=== PATIENT | male | born 1975 | race Hispanic/Latino ===

== ENCOUNTER 2016-12-25 23:53 | Observation (INO) | payer MEDICAID, OTHER ==
[2016-12-25 23:54] VITALS: BMI 24.3
[2016-12-26 00:22] VITALS: TEMP 97.9
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
[2016-12-26 02:01] LABS: HEMATOCRIT 35.7 % (42.0-52.0); MEAN CELL VOLUME 84.8 fL (80.0-105.0); MEAN CORPUSCULAR HEMOGLOBIN 26.6 pg (25.0-35.0); MEAN CORPUSCULAR HGB CONC 31.4 g/dl (31.0-37.0); MEAN PLATELET VOLUME 10.3 fl (7.0-11.0); RED CELL DISTRIBUTION WIDTH 13.6 % (11.5-14.5); WHITE BLOOD COUNT 7.7 10^3/ul (4.5-11.0)
[2016-12-26 02:12] LABS: INR 1.06 (0.93-1.08); PARTIAL THROMBOPLASTIN TIME 26.4 Seconds (23.7-30.8)
[2016-12-26 02:13] LABS: ALB/GLOB RATIO 1.2 (1.1-1.8); ALKALINE PHOSPHATASE 80 U/L (38-133); ALT/SGPT 36 U/L (7-56); AST/SGOT 31 U/L (15-59); BILIRUBIN,TOTAL 0.6 mg/dL (0.2-1.3); BLOOD UREA NITROGEN 14 mg/dL (7-21); CALCIUM 8.7 mg/dL (8.4-10.5); CARBON DIOXIDE 32 mmol/L (21-33); CHLORIDE 100 mmol/L (98-107); GFR AFRICAN-AMERICAN > 60; GLUCOSE,RANDOM 74 mg/dL (70-110); POTASSIUM 3.8 mmol/L (3.6-5.0); SODIUM 139 mmol/L (132-148); TOTAL PROTEIN 6.8 g/dL (5.8-8.3)
[2016-12-26 02:26] LABS: TROPONIN I < 0.01 ng/mL
[2016-12-26] MEDS ORDERED: Albuterol 0.083% Inhal Sol (2.5 mg/3 mL) UD IH PRN (05:26)
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
[2016-12-26 06:46] LABS: URINE BILIRUBIN NEGATIVE (NEGATIVE); URINE BLOOD NEGATIVE (NEGATIVE); URINE GLUCOSE (UA) NEGATIVE (NEGATIVE); URINE KETONE 15 mg/dL (NEGATIVE); URINE LEUKOCYTE ESTERASE NEGATIVE Leu/uL (NEGATIVE); URINE PROTEIN TRACE mg/dL (<30 mg/dL)
[2016-12-26 06:47] LABS: CHOLESTEROL 127 mg/dL (130-200)
[2016-12-26 06:49] LABS: URINE APPEARANCE SL CLOUDY (CLEAR); URINE COLOR YELLOW (YELLOW)
[2016-12-26 06:58] LABS: URINE EPITHELIAL CELLS 0 - 2 /hpf (0-5); URINE RBC 0 - 2 /hpf (0-2); URINE WBC 0 - 2 /hpf (0-6)
[2016-12-26 06:59] VITALS: O2SAT 100
[2016-12-26 06:59] LABS: URINE AMORPHOUS SEDIMENT RARE; URINE CALCIUM OXALATE CRYSTALS RARE /hpf
[2016-12-26 07:07] LABS: FREE T4 1.17 ng/dL (0.78-2.19); TROPONIN I < 0.01 ng/mL
[2016-12-26 07:21] LABS: THYROID STIMULATING HORMONE 0.72 mIU/mL (0.46-4.68)
--- NOTE | 2016-12-26 08:43 | RAD ---
HISTORY: Fever COMPARISON: 03/20/2015 FINDINGS: LUNGS: The lungs are well inflated and clear. PLEURA: No significant pleural effusion identified, no pneumothorax apparent. CARDIOVASCULAR: Normal. OSSEOUS STRUCTURES: No significant abnormalities. VISUALIZED UPPER ABDOMEN: Normal. OTHER FINDINGS: None. IMPRESSION: No active pulmonary disease.
[2016-12-26 09:02] VITALS: RESP 18
[2016-12-26 09:42] VITALS: BP 135/73
[2016-12-26] MEDS ORDERED: Thiamine 100 mg/ml Inj IV SCH (10:00)
[2016-12-26] MEDS ORDERED: Multivitamin With Minerals Tab PO SCH (10:00)
--- NOTE | 2016-12-26 13:10 | CARD ---
APPROVED REPORT EXAM: Two-dimensional and M-mode echocardiogram with Doppler and color Doppler. INDICATION Chest Pain 2D DIMENSIONS Left Atrium (2D)3.4 (1.6-4.0cm)IVSd1.0 (0.7-1.1cm) LVDd4.1 (3.9-5.9cm)PWd1.1 (0.7-1.1cm) LVDs2.7 (2.5-4.0cm)FS (%) 34.9 % LVEF (%)64.5 (>50%) M-Mode DIMENSIONS Aortic Root2.90 (2.2-3.7cm)Aortic Cusp Exc.1.80 (1.5-2.0cm) Aortic Valve AoV Peak Xbsjwtph023.0cm/Tati Peak GR.7mmHg Mitral Valve MV E Eiqesned22.9cm/sMV A Mfdsbxwg16.7cm/sE/A ratio1.2 TDI E/Lateral E'0.0E/Medial E'0.0 Tricuspid Valve TR Peak [id number]/sRAP [id number] Peak Gr.26mmHg [id number] LEFT VENTRICLE The left ventricle is normal size. There is normal left ventricular wall thickness. The left ventricular function is normal. The left ventricular ejection fraction is within the normal range. There is normal LV segmental wall motion. The left ventricular diastolic function is normal. RIGHT VENTRICLE The right ventricle is normal size. There is normal right ventricular wall thickness. The right ventricular systolic function is normal. ATRIA The left atrium size is normal. The right atrium size is normal. AORTIC VALVE The aortic valve is normal in structure. There is no aortic valvular stenosis. MITRAL VALVE The mitral valve is mildly thickened. There is no mitral valve regurgitation noted. TRICUSPID VALVE There is mild pulmonary hypertension. GREAT VESSELS The aortic root is normal in size. PERICARDIAL EFFUSION There is no pericardial effusion. <Conclusion> The left ventricle is normal size. There is normal left ventricular wall thickness. The left ventricular function is normal. The left ventricular ejection fraction is within the normal range. There is normal LV segmental wall motion. There is mild pulmonary hypertension.
[2016-12-26 15:22] VITALS: PULSE 88
--- NOTE | 2016-12-26 16:40 | CP.PCM.DIS ---
<Nick Cornell - Last Filed: 12/26/16 16:35> Provider - Provider Date of Admission: 12/26/16 04:48 Attending physician: Demetrio Del Castillo MD Consults: Cardio: Pool Time Spent in preparation of Discharge (in minutes): 35 Diagnosis - Discharge Diagnosis (1) Substance abuse Status: Chronic Priority: High (2) Chest pain Status: Chronic Priority: High Hospital Course - Lab Results Lab Results: Most Recent Lab Values WBC 7.7 10^3/ul (4.5-11.0) 12/26/16 00:40 RBC 4.21 10^6/uL (3.5-6.1) 12/26/16 00:40 Hgb 11.2 gm/dL (14.0-18.0) L 12/26/16 00:40 Hct 35.7 % (42.0-52.0) L 12/26/16 00:40 MCV 84.8 fL (80.0-105.0) 12/26/16 00:40 MCH 26.6 pg (25.0-35.0) 12/26/16 00:40 MCHC 31.4 g/dl (31.0-37.0) 12/26/16 00:40 RDW 13.6 % (11.5-14.5) 12/26/16 00:40 Plt Count 322 10^3/uL (120.0-450.0) 12/26/16 00:40 MPV 10.3 fl (7.0-11.0) 12/26/16 00:40 PT 11.4 Seconds (9.9-11.8) 12/26/16 00:40 INR 1.06 (0.93-1.08) 12/26/16 00:40 APTT 26.4 Seconds (23.7-30.8) 12/26/16 00:40 Sodium 139 mmol/L (132-148) 12/26/16 00:40 Potassium 3.8 mmol/L (3.6-5.0) 12/26/16 00:40 Chloride 100 mmol/L (98-107) 12/26/16 00:40 Carbon Dioxide 32 mmol/L (21-33) 12/26/16 00:40 Anion Gap 11 (10-20) 12/26/16 00:40 BUN 14 mg/dL (7-21) 12/26/16 00:40 Creatinine 0.8 mg/dL (0.5-1.4) 12/26/16 00:40 Est GFR ( Amer) > 60 12/26/16 00:40 Est GFR (Non-Af Amer) > 60 12/26/16 00:40 Random Glucose 74 mg/dL (70-110) 12/26/16 00:40 Hemoglobin A1c 5.7 % (4.2-6.5) 12/26/16 06:15 Calcium 8.7 mg/dL (8.4-10.5) 12/26/16 00:40 Total Bilirubin 0.6 mg/dL (0.2-1.3) 12/26/16 00:40 AST 31 U/L (15-59) 12/26/16 00:40 ALT 36 U/L (7-56) 12/26/16 00:40 Alkaline Phosphatase 80 U/L (38-133) 12/26/16 00:40 Lactate Dehydrogenase 424 U/L (333-699) 12/26/16 06:15 Total Creatine Kinase 61 U/L (35-230) 12/26/16 06:15 Troponin I < 0.01 ng/mL 12/26/16 06:15 Total Protein 6.8 g/dL (5.8-8.3) 12/26/16 00:40 Albumin 3.7 g/dL (3.0-4.8) 12/26/16 00:40 Globulin 3.2 gm/dL 12/26/16 00:40 Albumin/Globulin Ratio 1.2 (1.1-1.8) 12/26/16 00:40 Triglycerides 52 mg/dL (35-160) 12/26/16 06:15 Cholesterol 127 mg/dL (130-200) L 12/26/16 06:15 LDL Cholesterol Direct 69 mg/dL (0-129) 12/26/16 06:15 HDL Cholesterol 50 mg/dL (29-60) 12/26/16 06:15 Free T4 1.17 ng/dL (0.78-2.19) 12/26/16 06:15 TSH 3rd Generation 0.72 mIU/mL (0.46-4.68) 12/26/16 06:15 Urine Color Yellow (YELLOW) 12/26/16 03:40 Urine Appearance Sl cloudy (CLEAR) 12/26/16 03:40 Urine pH 6.0 (4.7-8.0) 12/26/16 03:40 Ur Specific [place] 1.025 (1.005-1.035) 12/26/16 03:40 Urine Protein Trace mg/dL (<30 mg/dL) H 12/26/16 03:40 Urine Glucose (UA) Negative mg/dL (NEGATIVE) 12/26/16 03:40 Urine Ketones 15 mg/dL (NEGATIVE) H 12/26/16 03:40 Urine Blood Negative (NEGATIVE) 12/26/16 03:40 Urine Nitrate Negative (NEGATIVE) 12/26/16 03:40 Urine Bilirubin Negative (NEGATIVE) 12/26/16 03:40 Urine Urobilinogen 2.0 E.U./dL (<1 E.U./dL) H 12/26/16 03:40 Ur Leukocyte Esterase Negative Mel[place]/uL (NEGATIVE) 12/26/16 03:40 Urine RBC 0 - 2 /hpf (0-2) 12/26/16 03:40 Urine WBC 0 - 2 /hpf (0-6) 12/26/16 03:40 Ur Epithelial Cells 0 - 2 /hpf (0-5) 12/26/16 03:40 Calcium Oxalate Crystal Rare /hpf 12/26/16 03:40 Amorphous Sediment Rare 12/26/16 03:40 Urine Opiates Screen Positive (NEGATIVE) H 12/26/16 03:40 Urine Methadone Screen Negative (NEGATIVE) 12/26/16 03:40 Ur Barbiturates Screen Negative (NEGATIVE) 12/26/16 03:40 Ur Phencyclidine Scrn Negative (NEGATIVE) 12/26/16 03:40 Ur Amphetamines Screen Negative (NEGATIVE) 12/26/16 03:40 U Benzodiazepines Scrn Positive (NEGATIVE) H 12/26/16 03:40 U Oth Cocaine Metabols Positive (NEGATIVE) H 12/26/16 03:40 U Cannabinoids Screen Positive (NEGATIVE) H 12/26/16 03:40 Alcohol, Quantitative < 10 mg/dL (0-10) 12/26/16 00:40 Hepatitis A IgM Ab Negative (NEGATIVE) 12/26/16 06:15 Hep Bs Antigen Negative (NEGATIVE) 12/26/16 06:15 Hep B Core IgM Ab Negative (NEGATIVE) 12/26/16 06:15 Hepatitis C Antibody Negative (NEGATIVE) 12/26/16 06:15 - Hospital Course Hospital Course: This patient is a 41 yo M with PMH of hypertension, diabetes, gastric bypass, depression, and heroin abuse who is presented to the ED with a 1 day history of chest pain he first reported after being arrested for drug possession by local police. He denied doing drugs, but his drug screen was positive for opiates, cocaine, THC, and benzos. During this admission, he was seen by Cardiology. His trops were negative x2 and his Echo was notable only for mild pulmonary hypertension, so he was cleared for discharge by Cardiology. He was instructed to follow up with a physician within 1 week of discharge, and to avoid further use of illicit substances, which he again denied taking. Questions were answered to his satisfaction, and then he was discharged. Discharge Exam - Head Exam Head Exam: ATRAUMATIC, NORMAL INSPECTION, NORMOCEPHALIC - Eye Exam Eye Exam: EOMI, Normal appearance. absent: Conjunctival injection, Scleral icterus Pupil Exam: absent: Irregular, Unequal - ENT Exam ENT Exam: Mucous Membranes Moist - Neck Exam Neck exam: Full Rom - Respiratory Exam Respiratory Exam: Chest Wall Tenderness (left upper chest into shoulder region tenderness statically, worse with palpation, no radiation), Clear to PA & Lateral, NORMAL BREATHING PATTERN, UNREMARKABLE. absent: Accessory Muscle Use, Decreased Breath Sounds, Rales, Rhonchi, Wheezes, Respiratory Distress - Cardiovascular Exam Cardiovascular Exam: REGULAR RHYTHM, RRR, +S1, +S2. absent: Bradycardia, Tachycardia, Irregular Rhythm, +S4 - GI/Abdominal Exam GI & Abdominal Exam: Normal Bowel Sounds, Soft, Unremarkable. absent: Diminished Bowel Sounds, Hyperactive Bowel Sounds, Hypoactive Bowel Sounds, Tenderness - Extremities Exam Extremities exam: normal capillary refill, normal inspection, pedal pulses present Additional comments: LUE ROM restricted due to handcuffed to bed, but otherwise appropriate ROM, moving fingers without difficulty - Neurological Exam Additional comments: Somnolent this AM but arousable, Awake and alert after; oriented to self, location, and time - Psychiatric Exam Psychiatric exam: Flat Affect, Normal Mood - Skin Skin Exam: Dry, Intact, Normal Color, Warm Discharge Plan - Follow Up Plan Condition: STABLE Disposition: HOME/ ROUTINE Instructions: Chest Pain (DC) Additional Instructions: Please follow up with a doctor within 1 week of discharge Refrain from further illicit drug use Avoid all tobacco and alcohol use <Demetrio Del Castillo - Last Filed: 12/27/16 13:44> Provider - Provider Date of Admission: 12/26/16 04:48 Attending physician: Demetrio Del Castillo MD Hospital Course - Lab Results Lab Results: Most Recent Lab Values WBC 7.7 10^3/ul (4.5-11.0) 12/26/16 00:40 RBC 4.21 10^6/uL (3.5-6.1) 12/26/16 00:40 Hgb 11.2 gm/dL (14.0-18.0) L 12/26/16 00:40 Hct 35.7 % (42.0-52.0) L 12/26/16 00:40 MCV 84.8 fL (80.0-105.0) 12/26/16 00:40 MCH 26.6 pg (25.0-35.0) 12/26/16 00:40 MCHC 31.4 g/dl (31.0-37.0) 12/26/16 00:40 RDW 13.6 % (11.5-14.5) 12/26/16 00:40 Plt Count 322 10^3/uL (120.0-450.0) 12/26/16 00:40 MPV 10.3 fl (7.0-11.0) 12/26/16 00:40 PT 11.4 Seconds (9.9-11.8) 12/26/16 00:40 INR 1.06 (0.93-1.08) 12/26/16 00:40 APTT 26.4 Seconds (23.7-30.8) 12/26/16 00:40 Sodium 139 mmol/L (132-148) 12/26/16 00:40 Potassium 3.8 mmol/L (3.6-5.0) 12/26/16 00:40 Chloride 100 mmol/L (98-107) 12/26/16 00:40 Carbon Dioxide 32 mmol/L (21-33) 12/26/16 00:40 Anion Gap 11 (10-20) 12/26/16 00:40 BUN 14 mg/dL (7-21) 12/26/16 00:40 Creatinine 0.8 mg/dL (0.5-1.4) 12/26/16 00:40 Est GFR ( Amer) > 60 12/26/16 00:40 Est GFR (Non-Af Amer) > 60 12/26/16 00:40 Random Glucose 74 mg/dL (70-110) 12/26/16 00:40 Hemoglobin A1c 5.7 % (4.2-6.5) 12/26/16 06:15 Calcium 8.7 mg/dL (8.4-10.5) 12/26/16 00:40 Total Bilirubin 0.6 mg/dL (0.2-1.3) 12/26/16 00:40 AST 31 U/L (15-59) 12/26/16 00:40 ALT 36 U/L (7-56) 12/26/16 00:40 Alkaline Phosphatase 80 U/L (38-133) 12/26/16 00:40 Lactate Dehydrogenase 424 U/L (333-699) 12/26/16 06:15 Total Creatine Kinase 61 U/L (35-230) 12/26/16 06:15 Troponin I < 0.01 ng/mL 12/26/16 06:15 Total Protein 6.8 g/dL (5.8-8.3) 12/26/16 00:40 Albumin 3.7 g/dL (3.0-4.8) 12/26/16 00:40 Globulin 3.2 gm/dL 12/26/16 00:40 Albumin/Globulin Ratio 1.2 (1.1-1.8) 12/26/16 00:40 Triglycerides 52 mg/dL (35-160) 12/26/16 06:15 Cholesterol 127 mg/dL (130-200) L 12/26/16 06:15 LDL Cholesterol Direct 69 mg/dL (0-129) 12/26/16 06:15 HDL Cholesterol 50 mg/dL (29-60) 12/26/16 06:15 Free T4 1.17 ng/dL (0.78-2.19) 12/26/16 06:15 TSH 3rd Generation 0.72 mIU/mL (0.46-4.68) 12/26/16 06:15 Urine Color Yellow (YELLOW) 12/26/16 03:40 Urine Appearance Sl cloudy (CLEAR) 12/26/16 03:40 Urine pH 6.0 (4.7-8.0) 12/26/16 03:40 Ur Specific [place] 1.025 (1.005-1.035) 12/26/16 03:40 Urine Protein Trace mg/dL (<30 mg/dL) H 12/26/16 03:40 Urine Glucose (UA) Negative mg/dL (NEGATIVE) 12/26/16 03:40 Urine Ketones 15 mg/dL (NEGATIVE) H 12/26/16 03:40 Urine Blood Negative (NEGATIVE) 12/26/16 03:40 Urine Nitrate Negative (NEGATIVE) 12/26/16 03:40 Urine Bilirubin Negative (NEGATIVE) 12/26/16 03:40 Urine Urobilinogen 2.0 E.U./dL (<1 E.U./dL) H 12/26/16 03:40 Ur Leukocyte Esterase Negative [place]/uL (NEGATIVE) 12/26/16 03:40 Urine RBC 0 - 2 /hpf (0-2) 12/26/16 03:40 Urine WBC 0 - 2 /hpf (0-6) 12/26/16 03:40 Ur Epithelial Cells 0 - 2 /hpf (0-5) 12/26/16 03:40 Calcium Oxalate Crystal Rare /hpf 12/26/16 03:40 Amorphous Sediment Rare 12/26/16 03:40 Urine Opiates Screen Positive (NEGATIVE) 12/26/16 03:40 Urine Methadone Screen Negative (NEGATIVE) 12/26/16 03:40 Ur Barbiturates Screen Negative (NEGATIVE) 12/26/16 03:40 Ur Phencyclidine Scrn Negative (NEGATIVE) 12/26/16 03:40 Ur Amphetamines Screen Negative (NEGATIVE) 12/26/16 03:40 U Benzodiazepines Scrn Positive (NEGATIVE) H 12/26/16 03:40 U Oth Cocaine Metabols Positive (NEGATIVE) H 12/26/16 03:40 U Cannabinoids Screen Positive (NEGATIVE) 12/26/16 03:40 Alcohol, Quantitative < 10 mg/dL (0-10) 12/26/16 00:40 Hepatitis A IgM Ab Negative (NEGATIVE) 12/26/16 06:15 Hep Bs Antigen Negative (NEGATIVE) 12/26/16 06:15 Hep B Core IgM Ab Negative (NEGATIVE) 12/26/16 06:15 Hepatitis C Antibody Negative (NEGATIVE) 12/26/16 06:15 HIV 1&2 Ag/Ab, 4th Gen Nonreactive (Nonreactive) 12/26/16 06:15 Attending/Attestation - Attestation I have personally seen and examined this patient.: Yes I have fully participated in the care of the patient.: Yes I have reviewed all pertinent clinical information, including history, physical exam and plan: Yes Notes (Text): 12/27/16 13:42 attending note; Patient seen and examined With resident and cardiology attending. patient is a 41-year-old male with a history of polysubstance abuse, anxiety is admitted with atypical chest pain. Cardiac enzymes negative. Echocardiogram preliminary without any significant abnormality. Cardiology evaluation appreciated. Patient will be transferred to halfway. Diagnosis; Musculoskeletal Chest pain. Polysubstance abuse Anxiety depression
--- NOTE | 2016-12-26 18:09 | CON ---
DATE: 12/26/2016 REASON FOR CONSULTATION: Chest pain. HISTORY OF PRESENT ILLNESS: The patient is a 41-year-old male who was recently arrested and was brou ght in by the police officers because of chest pain. The patient describes sharp, persistent chest p ain. The patient denies any associated diaphoresis, dizziness or syncope. The patient did experienc e chest pain following the arrest and with no physical effort at the time of his chest pain. The pat ient tested positive for opiates, benzodiazepines, cocaine and cannabinoids. The patient is unaware of any prior cardiac history. SOCIAL HISTORY: The patient is an ETOH abuser as well as cocaine and cannabinoid and opiate abuser. REVIEW OF SYSTEMS: No nausea, vomiting, fever, chills. PHYSICAL EXAMINATION: GENERAL: The patient is a middle-aged male who does not appear to be in any distress at this time. VITAL SIGNS: Blood pressure 135/73, heart rate 56, temperature 97.9, respirations 20. HEENT: Normocephalic. NECK: No JVD. CHEST: Clear. HEART: S1, S2 regular. ABDOMEN: Soft. EXTREMITIES: No edema. LABORATORY DATA: SMA-7 is within normal limits. Two sets of troponins are negative. Free T4 and TS H levels are within normal limits. PT, PTT are within normal limits. Hemoglobin and hematocrit 11.1 and 35.7, white count and platelet count are within normal limits. Chest x-ray revealed normal cardiac silhouette and prominent central vasculature. EKG revealed vivien l sinus rhythm with nonspecific T-wave changes. ASSESSMENT: 1. Chest pain, myocardial infarction is ruled out. 2. Cocaine abuse as well as cannabinoid, benzodiazepine and opiate abuse. RECOMMENDATIONS: Continue current subcutaneous heparin 5000 units twice a day, Norvasc 5 mg once a d ay, Zestril 2.5 mg once a day, aspirin given at 325 mg as a single dose today. No beta blockers just ified at this time. I would review the echocardiographic study and if unremarkable, the patient can be discharged from the cardiac point. Stefan Lanza MD cc: [id number] TT: 12/26/2016 18:08:16 Confirmation # [id number] Dictation # [id number]
--- NOTE | 2016-12-26 23:12 | CARD ---
APPROVED REPORT EKG Measurement Heart [id number] HI [id number] [id number] <Conclusion> Sinus bradycardia with short HI Nonspecific T wave abnormality Abnormal ECG
== END 2016-12-26 16:00 | disposition home or self-care (01) ==
LOC: ED 23:53 → ERH 12-26 04:48 → 3RSO 12-26 06:40
PROVIDERS: ADMIT Internal Medicine; ATTEND Internal Medicine
DX: R07.9 Chest pain, unspecified (principal); I10 Essential (primary) hypertension; F11.10 Opioid abuse, uncomplicated; F32.9 Major depressive disorder, single episode, unspecified; E11.9 Type 2 diabetes mellitus without complications; Z98.84 Bariatric surgery status; F41.9 Anxiety disorder, unspecified; I27.2 Other secondary pulmonary hypertension; F14.10 Cocaine abuse, uncomplicated; F12.10 Cannabis abuse, uncomplicated
CPT/HCPCS: 71010; 80053; 80061; 80074; 80320; 80324; 80345; 80346; 80349; 80353; 80358; 80361; 81001; 82550; 83036; 83615; 83992; 84439; 84443; 84484; 85027; 85610; 85730; 93005; 93306; 96372; 99285; G0378; J1644

== ENCOUNTER 2017-08-26 01:25 | Emergency (ER) | payer OTHER ==
[2017-08-26 01:26] VITALS: BMI 24.3
[2017-08-26 01:38] VITALS: RESP 18; TEMP 98.2; O2SAT 99
--- NOTE | 2017-08-26 02:11 | ED PDOC ---
Arrival/HPI - General Chief Complaint: Psychiatric Evaluation Time Seen by Provider: 08/26/17 01:43 Historian: Patient - History of Present Illness Narrative History of Present Illness (Text): 08/26/17 02:10 41 year old male, whose past medical history includes, hypertension, diabetes, gastric bypass, depression, and heroin abuse, presents to the emergency department by EMS for evaluation for possible suicidal ideation. As per collateral information, patient wanted to harm himself this evening. Patient admits to occasional cocaine use. He states he does no understand why he was brought here. Patient denies any fever, chills, chest pain, shortness of breath , nausea, vomiting, diarrhea, urinary symptoms, back pain, neck pain, headache, dizziness, suicidal/homicidal Ideation at this time, or any other complaints. 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,SECONDARY TO TRAUMA) - Renal Hx Renal Disorder: Yes Hx Kidney Stones: Yes - Endocrine/Metabolic Hx Diabetes Mellitus Type 2: Yes - Hematological/Oncological Hx Cancer: No - Integumentary Hx Dermatological Disorder: (DRY FLAKY SKIN TO HEAD.TATTOOS.) - Musculoskeletal/Rheumatological Hx Musculoskeletal Disorders: Yes () Hx Back Pain: Yes Hx Falls: Yes Hx Herniated Disk: Yes - Gastrointestinal Hx Gastrointestinal Disorders: No - Genitourinary/Gynecological Hx Genitourinary Disorders: No Hx Sexually Transmitted Diseases: No - Psychiatric Hx Anxiety: Yes Hx Substance Use: Yes (opiates) Other/Comment: Hx of suicidal thoughts ,hx of overdose. 2 Years ago - Past Surgical History Past Surgical History: Non-Contributing - Surgical History Hx Appendectomy: Yes Hx Gastric Bypass Surgery: Yes (2009) Hx Orthopedic Surgery: Yes (bilateral knees) - Anesthesia Hx Anesthesia: Yes Hx Anesthesia Reactions: No Hx Malignant Hyperthermia: No - Suicidal Assessment Feels Threatened In Home Enviroment: No Family/Social History - Physician Review Nursing Documentation Reviewed: Yes Family/Social History: No Known Family HX Smoking Status: Never Smoked Hx Alcohol Use: Yes (OCCASIONALLY) Hx Substance Use: Yes (opiates) Hx Substance Use Treatment: No Allergies/Home Meds Allergies/Adverse Reactions: Allergies No Known Allergies Allergy (Verified 03/20/15 17:32) Home Medications: Home Meds Medication Instructions Recorded Confirmed Escitalopram [Lexapro] 20 mg PO DAILY 08/26/17 08/26/17 Gabapentin [Neurontin] 100 mg PO DAILY 08/26/17 08/26/17 Methadone [Methadose] 180 mg PO DAILY 08/26/17 08/26/17 clonazePAM [clonAZEPAM] 1 mg PO BID 08/26/17 08/26/17 Review of Systems - Physician Review All systems were reviewed & negative as marked: Yes - Review of Systems Constitutional: absent: Fevers, Other (Chills) Respiratory: absent: SOB, Cough Cardiovascular: absent: Chest Pain Gastrointestinal: absent: Diarrhea, Nausea, Vomiting Genitourinary Male: absent: Dysuria, Frequency, Hematuria Musculoskeletal: absent: Back Pain, Neck Pain Neurological: absent: Headache, Dizziness Psychiatric: absent: Suicidal Ideation (/homicidal Ideation ) Physical Exam Vital Signs Reviewed: Yes Vital Signs Temp Pulse Resp BP Pulse Ox 08/26/17 01:32 98.2 F 78 18 124/78 99 Temperature: Afebrile Blood Pressure: Normal Pulse: Regular Respiratory Rate: Normal Appearance: Positive for: Well-Appearing, Non-Toxic, Comfortable Pain Distress: None Mental Status: Positive for: Alert and Oriented X 3 - Systems Exam Head: Present: Atraumatic, Normocephalic Pupils: Present: PERRL Extroacular Muscles: Present: EOMI Conjunctiva: Present: Normal Mouth: Present: Moist Mucous Membranes Neck: Present: Normal Range of Motion Respiratory/Chest: Present: Clear to Auscultation, Good Air Exchange. No: Respiratory Distress, Accessory Muscle Use Cardiovascular: Present: Regular Rate and Rhythm, Normal S1, S2. No: Murmurs Abdomen: Present: Normal Bowel Sounds. No: Tenderness, Distention, Peritoneal Signs Back: Present: Normal Inspection Upper Extremity: Present: Normal Inspection. No: Cyanosis, Edema Lower Extremity: Present: Normal Inspection. No: Edema Neurological: Present: GCS=15, CN II-XII Intact, Speech Normal, Motor Func Grossly Intact, Normal Sensory Function Skin: Present: Warm, Dry, Normal Color. No: Rashes Psychiatric: Present: Alert, Oriented x 3, Normal Insight, Normal Concentration Medical Decision Making ED Course and Treatment: 08/26/17 02:11 Impression: 41 year old male presents for evacuation for possible suicidal Ideation. Patient denies SI/HI at this time. Plan: -- EKG -- Labs -- Reassess and disposition Prior Visits: Notes and results from previous visits were reviewed. Patient was last seen in the emergency department on 12/26/16 presents under polic custody complaining of palpitation. Patient was admitted. Progress Notes: EKG shows NSR at 71 BPM with LVH. Non-specific ST/T changes. Interpreted by me. 08/26/17 04:58 Pt. was seen and evaluated by TAVIA Travis.Cleared for discharge by psych. who is familiar with the patient. - Lab Interpretations Lab Results: 08/26/17 02:20 08/26/17 02:20 Lab Results 08/26/17 02:20: Alcohol, Quantitative < 10 08/26/17 02:20: Urine Opiates Screen Positive H, Urine Methadone Screen Positive H, Ur Barbiturates Screen Negative, Ur Phencyclidine Scrn Negative, Ur Amphetamines Screen Negative, U Benzodiazepines Scrn Negative, U Oth Cocaine Metabols Positive H, U Cannabinoids Screen Negative 08/26/17 02:20: Sodium 141, Potassium 2.9 L* D, Chloride 96 L, Carbon Dioxide 35 H, Anion Gap 13, BUN 5 L, Creatinine 0.8, Est GFR ( Amer) > 60, Est GFR (Non-Af Amer) > 60, Random Glucose 101, Calcium 9.2, Total Bilirubin 0.4, AST 65 H, ALT 51, Alkaline Phosphatase 114, Total Protein 7.3, Albumin 3.8, Globulin 3.5, Albumin/Globulin Ratio 1.1 08/26/17 02:20: WBC 7.8, RBC 4.81, Hgb 12.3 L, Hct 39.1 L, MCV 81.3, MCH 25.6, MCHC 31.5, RDW 16.4 H, Plt Count 308, MPV 10.3, Gran % 63.4, Lymph % (Auto) 27.7 , Towns % (Auto) 7.8 H, Eos % (Auto) 0.6 L, Baso % (Auto) 0.5, Gran # 4.95, Lymph # (Auto) 2.2, [place] # (Auto) 0.6, Eos # (Auto) 0.1, Baso # (Auto) 0.04 I have reviewed the lab results: Yes - EKG Interpretation Interpreted by ED Physician: Yes Type: 12 lead EKG - Medication Orders Current Medication Orders: Discontinued Medications Potassium Chloride (K-Dur 20 Meq Er Tab) 40 meq PO STAT STA Stop: 08/26/17 03:24 - Scribe Statement The provider has reviewed the documentation as recorded by the Sirisha Manjarrez Provider Scribe Attestation: All medical record entries made by the Scribe were at my direction and personally dictated by me. I have reviewed the chart and agree that the record accurately reflects my personal performance of the history, physical exam, medical decision making, and the department course for this patient. I have also personally directed, reviewed, and agree with the discharge instructions and disposition. Disposition/Present on Arrival - Present on Arrival Any Indicators Present on Arrival: No History of DVT/PE: No History of Uncontrolled Diabetes: No Urinary Catheter: No History of Decub. Ulcer: No History Surgical Site Infection Following: None - Disposition Have Diagnosis and Disposition been Completed?: Yes Diagnosis: MDD (major depressive disorder) Disposition: HOME/ ROUTINE Disposition Time: 05:08 Patient Plan: Discharge Condition: GOOD Additional Instructions: Follow up with your psychiatrist this week Referrals: Steven Alex JD, MD [Primary Care Provider] - Follow up with primary Forms: [employer] (Albanian)
[2017-08-26 02:36] LABS: BASO # 0.04 K/mm3 (0.0-2.0); BASO % 0.5 % (0.0-3.0); EOS # 0.1 (0.0-0.7); EOS % 0.6 % (1.5-5.0); GRAN # 4.95 (1.4-6.5); GRAN % 63.4 % (50.0-68.0); HEMOGLOBIN 12.3 g/dL (14.0-18.0); LYMPH # 2.2 (1.2-3.4); LYMPH % 27.7 % (22.0-35.0); MEAN CELL VOLUME 81.3 fl (80.0-105.0); MEAN CORPUSCULAR HEMOGLOBIN 25.6 pg (25.0-35.0); MEAN CORPUSCULAR HGB CONC 31.5 g/dl (31.0-37.0); MEAN PLATELET VOLUME 10.3 fl (7.0-11.0); MONO # 0.6 (0.1-0.6); MONO % 7.8 % (1.0-6.0); RBC 4.81 10^6/uL (3.5-6.1); RED CELL DISTRIBUTION WIDTH 16.4 % (11.5-14.5); WHITE BLOOD COUNT 7.8 10^3/ul (4.5-11.0)
[2017-08-26 03:04] LABS: BARBITURATES, UR NEGATIVE (NEGATIVE); BENZODIAZEPINES, UR NEGATIVE (NEGATIVE); PHENCYCLIDINE, UR NEGATIVE (NEGATIVE)
[2017-08-26 03:20] LABS: OPIATES, UR POSITIVE (NEGATIVE)
[2017-08-26 03:22] LABS: ALB/GLOB RATIO 1.1 (1.1-1.8); ALBUMIN 3.8 g/dL (3.0-4.8); ALT/SGPT 51 U/L (7-56); AST/SGOT 65 U/L (17-59); BLOOD UREA NITROGEN 5 mg/dL (7-21); CALCIUM 9.2 mg/dL (8.4-10.5); GFR AFRICAN-AMERICAN > 60; GFR NON-AFRICAN AMERICAN > 60
[2017-08-26] MEDS ORDERED: Potassium Chloride 20 mEq ER Tab PO STA (03:23)
[2017-08-26 05:18] VITALS: BP 132/74; PULSE 84
--- NOTE | 2017-08-26 10:26 | CARD ---
APPROVED REPORT EKG Measurement Heart [id number] [id number] <Conclusion> Normal sinus rhythm Possible Left atrial enlargement Left ventricular hypertrophy Repolarization abnormality and markedly prolonged QT are new
== END 2017-08-26 05:18 | disposition home or self-care (01) ==
LOC: ED 01:25
DX: F32.9 Major depressive disorder, single episode, unspecified (principal); I10 Essential (primary) hypertension; E11.9 Type 2 diabetes mellitus without complications; Z98.84 Bariatric surgery status; F11.10 Opioid abuse, uncomplicated

== ENCOUNTER 2018-07-28 07:42 | Emergency (ER) | payer MEDICAID ==
[2018-07-28 07:45] VITALS: BMI 24.3
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
[2018-07-28 18:08] VITALS: O2SAT 0
== END 2018-07-28 14:00 ==
LOC: ED 07:42
DX: I46.9 Cardiac arrest, cause unspecified (principal)